=== PATIENT | male | born 1965 | race Two or more races ===

== ENCOUNTER 2020-09-15 06:44 | Day surgery (SDC) | payer MEDICARE, BC ==
[~2020-09-15] VITALS: Ht 172.7 cm; Wt 85.9 kg
[~2020-09-15 06:44] MED LIST: CARV25TA3 PO; NIFE60TA79 PO
[2020-09-15] MEDS ORDERED: normal saline 1000ml 1,000 ML IV SCH (07:10)
[2020-09-15 07:53] LABS: BASOPHILS % (AUTO) 0.9 % (0-1); EOSINOPHILS # (AUTO) 0.2 X10'3 (0-0.9); EOSINOPHILS % (AUTO) 4.7 % (0-6); HEMATOCRIT 41.5 % (42.0-52.0); HEMOGLOBIN 13.7 g/dl (14.0-17.9); LYMPHOCYTES # (AUTO) 1.3 X10'3 (1.1-4.8); LYMPHOCYTES % (AUTO) 28.4 % (21-51); MEAN CORPUSCULAR HEMOGLOBIN 28.7 PG (27.0-31.0); MEAN CORPUSCULAR VOLUME 87.1 FL (78-98); MEAN PLATELET VOLUME 8.9 FL (7.4-10.4); MONOCYTES # (AUTO) 0.5 X10'3 (0-0.9); NEUTROPHILS # (AUTO) 2.6 X10'3 (1.8-7.7); PLATELET COUNT 137 X10'3 (140-440); RED BLOOD COUNT 4.77 X10'6 (4.70-6.10); RED CELL DISTRIBUTION WIDTH 16.1 % (11.5-14.5); WHITE BLOOD COUNT 4.6 X10'3 (4.5-11.0)
[2020-09-15 08:05] LABS: ALBUMIN 3.7 G/DL (3.4-5.0); ANION GAP 11 (8-16); CALCIUM 8.6 MG/DL (8.5-10.1); CHLORIDE 103 MMOL/L (99-107); GLUCOSE 79 MG/DL (70-104); POTASSIUM 4.5 MMOL/L (3.5-5.1); SODIUM 140 MMOL/L (135-145); TOTAL CARBON DIOXIDE 25.9 MMOL/L (24-32)
[2020-09-15 08:15] LABS: BLOOD UREA NITROGEN 39 MG/DL (7-18); BUN/CREATININE RATIO 4.2 (5.4-32.0); CREATININE 9.26 MG/DL (0.60-1.10); eGFR 6 ML/MIN
[2020-09-15] MEDS ORDERED: FURO-150 PO (08:24)
[2020-09-15] MEDS ORDERED: LISI20TA28 PO (08:24)
[2020-09-15 08:25] VITALS: BP 191/92
[2020-09-15] MEDS ORDERED: LIDOcaine 1%/PF 5ML 10 MG/ML VIAL ONE (08:47)
[2020-09-15] MEDS ORDERED: fentaNYL/PF 50MCG/1 ML 2ML syringe ONE ×2 (08:47→09:22)
[2020-09-15] MEDS ORDERED: midazolam 1 mg/ML 2ml injection ONE ×2 (08:47→09:22)
[2020-09-15] MEDS ORDERED: iohexol 300mg/ml 100ml inj. ONE (08:47)
[2020-09-15] MEDS ORDERED: heparin 1,000 UNITS/NS 500ml 500 ML ONE (08:47)
[2020-09-15 09:51] VITALS: BP 170/86
[2020-09-15 10:00] VITALS: BP 182/93
[2020-09-15 10:15] VITALS: BP 189/87
[2020-09-15 10:30] VITALS: BP 182/79
== END 2020-09-15 11:00 | disposition home or self-care (01) ==
LOC: SSTAY O 06:44
PROVIDERS: ATTEND Radiology Vascular & Interventional Radiology
DX: T82.858A Stenosis of other vascular prosthetic devices, implants and grafts, initial encounter (principal); I12.0 Hypertensive chronic kidney disease with stage 5 chronic kidney disease or end stage renal disease; N18.6 End stage renal disease; Z79.899 Other long term (current) drug therapy; Z98.890 Other specified postprocedural states; Y83.2 Surgical operation with anastomosis, bypass or graft as the cause of abnormal reaction of the patient, or of later complication, without mention of misadventure at the time of the procedure; Y92.89 Other specified places as the place of occurrence of the external cause
CPT/HCPCS: 36415; 36901; 36907; 80048; 85025; 85610; 99152; 99153; C1725; C1769; C1894; J1644; J2250; J3010; Q9967